=== PATIENT | male | born 1960 | race Hispanic/Latino ===

== ENCOUNTER → 2025-03-21 | Outpatient (CLI) | payer OTHER ==
--- NOTE | 2025-03-21 15:18 | HMCIMG ---
EXAM: US Abdomen Complete CLINICAL HISTORY: Other specified diseases of blood and blood-forming organs. TECHNIQUE: Real-time ultrasound of the abdomen (complete) with image documentation. COMPARISON: None provided. FINDINGS: LIVER: Measures 14.3 cm in length and shows increased echogenicity consistent with fatty infiltration. A few hyperechoic foci with posterior ring-down artifacts are noted, likely representing reverberation from the adjacent gallbladder wall changes. No focal hepatic mass or intrahepatic biliary dilatation. Liver surface appears smooth. GALLBLADDER: Wall thickness is normal, measuring 2 mm. Multiple small polyps are seen, the largest measuring 4 mm. Ring-down artifacts arising from the gallbladder wall are noted, characteristic of adenomyomatosis. No gallstones or pericholecystic fluid. COMMON BILE DUCT: Measures 4 mm in diameter and is within normal limits. No biliary dilatation. PANCREAS: Unremarkable where visualized. The distal pancreas is partially obscured by bowel gas. RIGHT KIDNEY: Measures 12.4 ??? 5.4 ??? 4.2 cm. Multiple cortical cysts are seen, the largest located at the superior pole measuring 2.0 ??? 2.3 ??? 2.2 cm. No solid mass, calculus, or hydronephrosis. LEFT KIDNEY: Measures 11.2 ??? 5.7 ??? 5.0 cm. Multiple cortical cysts are noted, the largest at the inferior pole measuring 1.2 ??? 1.0 ??? 0.9 cm. No hydronephrosis or calculus. SPLEEN: Measures 11.3 cm. Normal echotexture with no focal lesion. AORTA: Normal caliber with no aneurysmal dilatation. IVC: Patent and unremarkable as visualized. MISCELLANEOUS: No ascites or abnormal fluid collection detected. IMPRESSION: * Increased hepatic echogenicity consistent with fatty infiltration. * Hyperechoic foci with ring-down artifacts corresponding to adenomyomatosis of the gallbladder. * Normal gallbladder wall thickness (2 mm) with multiple small polyps, largest measuring 4 mm. * Common bile duct within normal limits (4 mm). * Bilateral renal cortical cysts???largest measuring 2.3 cm in the right superior pole and 1.2 cm in the left inferior pole. /[place]
== END | disposition home or self-care (01) ==
LOC: RAH 08:14
PROVIDERS: ATTEND Internal Medicine Medical Oncology
DX: N28.1 Cyst of kidney, acquired (principal); K82.8 Other specified diseases of gallbladder; D75.89 Other specified diseases of blood and blood-forming organs
CPT/HCPCS: 76700